=== PATIENT | male | born 1935 | race Caucasian/White ===

== ENCOUNTER 2016-05-12 13:45 | Inpatient (IN) | payer MEDICARE, BC ==
[~2016-05-12] VITALS: Ht 175.3 cm; Wt 103.0 kg
[2016-05-18] VITALS (12 sets, daily range): BP systolic 101–144; BP diastolic 54–81; PULSE 57–79; TEMP 97.6–98.4
[2016-05-18] MEDS ORDERED: FISH OIL 1000MG1 CAP PO (09:20)
[2016-05-18] MEDS ORDERED: PRAVACHOL 20MG20 MG PO (09:20)
[2016-05-18] MEDS ORDERED: ASPIRIN E.C. 8181 MG PO (09:21)
[2016-05-18] MEDS ORDERED: MULTIPLE VITAMI1 CAP PO (09:23)
[2016-05-18] MEDS ORDERED: VITAMIN D1000 IU PO (09:23)
[2016-05-18] MEDS ORDERED: B-12 500 MCG PO (09:24)
[2016-05-18] MEDS ORDERED: CRANBERRY500 M3 PO (09:24)
[2016-05-18] MEDS ORDERED: CARDURA4 MG PO (09:25)
[2016-05-18] MEDS ORDERED: BILBERRY EXTRAC80 MG PO (09:25)
[2016-05-18] MEDS ORDERED: ZESTRIL 20MG TA20 MG PO (09:25)
[2016-05-18] MEDS ORDERED: LUPRON5 MG/M2 IJ (09:26)
[2016-05-18] MEDS ORDERED: STOOL SOFTENER100 M2 PO (09:27)
[2016-05-18] MEDS ORDERED: 00186-0372-20 IH (09:27)
[2016-05-18 10:07] LABS: CALCIUM 9.2 mg/dL (8.4-10.2); CREATININE, serum 0.95 mg/dL (0.66-1.25); POTASSIUM 4.1 mmol/L (3.4-5.0)
[2016-05-19 00:12] VITALS: BP 108/50; PULSE 82; TEMP 97.5
[2016-05-19 04:02] VITALS: BP 101/57; PULSE 77; TEMP 98.5
[2016-05-19 07:43] LABS: CALCIUM 9.1 mg/dL (8.4-10.2); CREATININE, serum 0.87 mg/dL (0.66-1.25); POTASSIUM 4.2 mmol/L (3.4-5.0)
[2016-05-19 08:11] LABS: HEMATOCRIT 31.8 % (42.0-52.0)
[2016-05-19 09:24] VITALS: BP 118/57; PULSE 70; TEMP 98.2
[2016-05-19 13:12] VITALS: BP 116/61; PULSE 65; TEMP 98
[2016-05-19 17:18] VITALS: BP 133/56; PULSE 86; TEMP 98.2
[2016-05-19 21:19] VITALS: BP 145/70; PULSE 77; TEMP 98.3
[2016-05-20 05:21] VITALS: BP 147/53; PULSE 69; TEMP 97.9
[2016-05-20 09:24] VITALS: BP 124/62; PULSE 95; TEMP 98.5
[2016-05-20 13:47] VITALS: BP 100/52; PULSE 85; TEMP 98.5
[2016-05-20 17:40] VITALS: BP 148/64; PULSE 72; TEMP 98.5
[2016-05-20 21:36] VITALS: BP 120/64; PULSE 76; TEMP 98
[2016-05-21 05:48] VITALS: BP 122/66; PULSE 79; TEMP 98
[2016-05-21 10:07] VITALS: BP 102/54; PULSE 73; TEMP 98.4
[2016-05-21 12:59] VITALS: BP 12/69; PULSE 72; TEMP 98.3
[2016-05-21 17:15] VITALS: BP 92/78; PULSE 63; TEMP 98.8
[2016-05-21 22:04] VITALS: BP 106/54; PULSE 63; TEMP 98.2
[2016-05-22 05:48] VITALS: BP 119/70; PULSE 63; TEMP 98
[2016-05-22] MEDS ORDERED: NORCO 325 MG-51 TAB PO (06:58)
[2016-05-22 09:50] VITALS: BP 103/56; PULSE 71; TEMP 98.2
== END 2016-05-22 12:00 | disposition home or self-care (01) | DRG 331 ==
LOC: SURG 05-17 13:30 → INPTSU 05-18 08:21 → SURG 05-18 10:30
PROVIDERS: Surgery
PROC: 0DTF0ZZ Resection of Right Large Intestine, Open Approach (ICD-10-PCS; principal; 2016-05-18 10:30)
DX: C18.2 Malignant neoplasm of ascending colon (principal); Z85.46 Personal history of malignant neoplasm of prostate; I10 Essential (primary) hypertension
CPT/HCPCS: A4315; A9284; J0694; J1100; J1170; J1650; J2270; J2405; J2704; J2710; J3010; J7120